=== PATIENT | female | born 1965 | race Caucasian/White ===

== ENCOUNTER 2017-02-02 07:11 | Day surgery (SDC) | payer MEDICAID ==
[2017-02-02] MEDS ORDERED: Lactated Ringer's 1,000 ML IV ONE (07:32)
[2017-02-02 07:56] VITALS: TEMP 97
[2017-02-02] MEDS ORDERED: Lidocaine 2% MPF (5 ml) Inj ONE (08:11)
[2017-02-02] MEDS ORDERED: Propofol 10 mg/ml Inj (20 ML) ONE (08:11)
[2017-02-02 08:54] VITALS: BP 105/64; PULSE 65; RESP 20; O2SAT 100
== END 2017-02-02 09:05 | disposition home or self-care (01) ==
LOC: H.ENDO 07:11
PROVIDERS: ATTEND Internal Medicine Gastroenterology
DX: Z12.11 Encounter for screening for malignant neoplasm of colon (principal); K64.8 Other hemorrhoids
CPT/HCPCS: 45378; J2704; J7120

== ENCOUNTER 2017-10-30 14:19 | Emergency (ER) | payer MEDICAID ==
[2017-10-30 14:31] VITALS: BP 152/84; PULSE 61; RESP 16; TEMP 98.3; O2SAT 99
[2017-10-30] MEDS ORDERED: Naproxen 500 MG TAB PO ONE ×2 (15:02→15:22)
--- NOTE | 2017-10-30 15:59 | ED PDOC ---
HPI: Headache Time Seen by Provider: 10/30/17 14:40 Chief Complaint (Nursing): Headache Chief Complaint (Provider): Headache History Per: Patient History/Exam Limitations: no limitations Onset/Duration Of Symptoms: Days (x30), Gradual Current Symptoms Are (Timing): Still Present Additional Complaint(s): 52 y/o female presents to the ED complaining of right sided headaches, gradual onset one month ago. Patient states for the past two weeks headache has become more constant. Patient reports she was seen by PMD, Dr. Jones, who prescribed high cholesterol and HTN medications for which she is compliant with. Denies trauma, loss of consciousness, nausea, vomiting, fever, rash, ear pain, medications for headache relief. PMD: Dr. Jones Past Medical History Reviewed: Historical Data, Nursing Documentation, Vital Signs Vital Signs: Last Vital Signs Temp 98.3 F 10/30/17 14:29 Pulse 61 10/30/17 14:29 Resp 16 10/30/17 14:29 BP 152/84 H 10/30/17 14:29 Pulse Ox 99 10/30/17 14:29 - Medical History PMH: HTN, Hypercholesterolemia - Surgical History Surgical History: No Surg Hx - Family History Family History: States: Unknown Family Hx - Immunization History Hx Tetanus Toxoid Vaccination: No Hx Influenza Vaccination: No Hx Pneumococcal Vaccination: No - Home Medications Home Medications: Ambulatory Orders Medication Instructions Recorded Atenolol 100 mg PO DAILY #30 tab 03/26/16 Naproxen [Naprosyn] 500 mg PO BID PRN #10 tab 10/30/17 - Allergies Allergies/Adverse Reactions: Allergies Allergy/AdvReac Type Severity Reaction Status Date / Time No Known Allergies Allergy Verified 02/02/17 07:50 Review of Systems ROS Statement: Except As Marked, All Systems Reviewed And Found Negative Constitutional: Negative for: Fever ENT: Negative for: Ear Pain Gastrointestinal: Negative for: Nausea, Vomiting Skin: Negative for: Rash Neurological: Positive for: Headache Physical Exam - Reviewed Nursing Documentation Reviewed: Yes Vital Signs Reviewed: Yes - Physical Exam Appears: Positive for: No Acute Distress Head Exam: Positive for: ATRAUMATIC, NORMOCEPHALIC Skin: Positive for: Normal Color, Warm, Dry Eye Exam: Positive for: Normal appearance, EOMI, PERRL ENT: Positive for: Normal ENT Inspection Neck: Positive for: Normal, Painless ROM, Supple Cardiovascular/Chest: Positive for: Regular Rate, Rhythm. Negative for: Murmur Respiratory: Positive for: Normal Breath Sounds. Negative for: Respiratory Distress Gastrointestinal/Abdominal: Positive for: Normal Exam, Soft. Negative for: Tenderness Back: Positive for: Normal Inspection. Negative for: L CVA Tenderness, R CVA Tenderness Extremity: Positive for: Normal ROM. Negative for: Pedal Edema, Deformity Neurologic/Psych: Positive for: Alert, Oriented. Negative for: Motor/Sensory Deficits - ECG O2 Sat by Pulse Oximetry: 99 (RA) Pulse Ox Interpretation: Normal - Progress Re-evaluation Time: 17:50 (Informed of CT results and need for f/u. Pt. agrees with plan and care. This discussion was done using [employer] #[id number]) Condition: Re-examined, Improving,but remains with symptoms Medical Decision Making Medical Decision Making: Time: 1502 Plan: -- Naproxen 500 mg PO -- CT Head w/o Contrast Time: 1526 Plan: -- ED Urine Scribe Attestation: Documented by Aldo Dia, acting as a scribe for Josse Everett PA-C. Provider Scribe Attestation: All medical record entries made by the Scribe were at my direction and personally dictated by me. I have reviewed the chart and agree that the record accurately reflects my personal performance of the history, physical exam, medical decision making, and the department course for this patient. I have also personally directed, reviewed, and agree with the discharge instructions and disposition. Disposition - Clinical Impression Clinical Impression: Acute headache - Patient ED Disposition Is Patient to be Admitted: No - Disposition Referrals: Levi Jones MD [Staff Provider] - Disposition: Routine/Home Disposition Time: 16:41 Condition: IMPROVED Additional Instructions: AMBROCIO MONTEMAYOR, thank you for letting us take care of you today. Your provider was Thomas Poon MD and you were treated for HEADACHES. The emergency medical care you received today was directed at your acute symptoms. If you were prescribed any medication, please fill it and take as directed. It may take several days for your symptoms to resolve. Return to the Emergency Department if your symptoms worsen, do not improve, or if you have any other problems. Please contact your doctor or call one of the physicians/clinics you have been referred to that are listed on the Patient Visit Information form that is included in your discharge packet. Bring any paperwork you were given at discharge with you along with any medications you are taking to your follow up visit. Our treatment cannot replace ongoing medical care by a primary care provider outside of the emergency department. Thank you for allowing the [facility] team to be part of your care today. If you had an X-Ray or CT scan: A Radiologist will review the ED reading if any change in treatment is needed we will contact you. If you had a blood, urine, or wound culture: It will take several days for the results, if any change in treatment is needed we will contact you. If you had an STI test: It will take 48 hours for the results. Please call after 1 week if you have not heard back. Prescriptions: Naproxen [Naprosyn] 500 mg PO BID PRN #10 tab PRN Reason: Headache or pain Instructions: Acute Headache (ED) Forms: [employer] ([place]se) Print Language: CHINESE
--- NOTE | 2017-10-31 08:51 | CT ---
Date of service: 10/30/2017 PROCEDURE: CT HEAD WITHOUT CONTRAST. HISTORY: headache COMPARISON: None available. TECHNIQUE: Axial computed tomography images were obtained through the head/brain without intravenous contrast. Radiation dose: Total exam DLP = mGy-cm. This CT exam was performed using one or more of the following dose reduction techniques: Automated exposure control, adjustment of the mA and/or kV according to patient size, and/or use of iterative reconstruction technique. FINDINGS: HEMORRHAGE: No intracranial hemorrhage. BRAIN: No mass effect or edema. No atrophy or chronic microvascular ischemic changes. VENTRICLES: Unremarkable. No hydrocephalus. CALVARIUM: Unremarkable. PARANASAL SINUSES: Unremarkable as visualized. No significant inflammatory changes. MASTOID AIR CELLS: Unremarkable as visualized. No inflammatory changes. OTHER FINDINGS: None. IMPRESSION: Normal CT of the Head.
== END 2017-10-30 18:15 | disposition home or self-care (01) ==
LOC: H.ER 14:19
DX: R51 Headache (principal); E78.00 Pure hypercholesterolemia, unspecified; I10 Essential (primary) hypertension